=== PATIENT | female | born 1940 | race Caucasian/White ===

== ENCOUNTER 2017-07-12 11:24 | Outpatient (CLI) | payer MEDICARE, BC | END 2017-07-12 11:25 | disposition home or self-care (01) | LOC: BICMAMMO 11:24 | PROVIDERS: ATTEND Obstetrics & Gynecology | DX: Z12.31 Encounter for screening mammogram for malignant neoplasm of breast (principal); R92.1 Mammographic calcification found on diagnostic imaging of breast; Z80.3 Family history of malignant neoplasm of breast | CPT/HCPCS: 77063; 77067 ==

== ENCOUNTER 2017-11-29 11:14 | Outpatient (CLI) | payer MEDICARE, BC | END 2017-11-29 11:15 | disposition home or self-care (01) | LOC: BICMAMMO 11:14 | PROVIDERS: ATTEND Internal Medicine Rheumatology | DX: M81.0 Age-related osteoporosis without current pathological fracture (principal); M85.89 Other specified disorders of bone density and structure, multiple sites | CPT/HCPCS: 77080 ==

== ENCOUNTER 2018-07-13 10:37 | Outpatient (CLI) | payer MEDICARE, BC | END 2018-07-13 10:38 | disposition home or self-care (01) | LOC: BICMAMMO 10:37 | PROVIDERS: ATTEND Obstetrics & Gynecology | DX: Z12.31 Encounter for screening mammogram for malignant neoplasm of breast (principal); Z80.3 Family history of malignant neoplasm of breast | CPT/HCPCS: 77063; 77067 ==

== ENCOUNTER 2019-08-30 11:12 | Outpatient (CLI) | payer MEDICARE, BC ==
--- NOTE | 2019-08-30 12:33 | MMO ---
Bilateral MAMMO Bilat Screen [facility]. CLINICAL HISTORY: Patient is 79 years old and is seen for screening. The patient has no family history of breast cancer. The patient has no personal history of cancer. VIEWS: The views performed were: bilateral craniocaudal with tomosynthesis and bilateral mediolateral oblique with tomosynthesis. FILMS COMPARED: The present examination has been compared to prior imaging studies performed at [facility] on 04/24/2015, 04/28/2016, 07/12/2017 and 07/13/2018. This study has been interpreted with the assistance of computer-aided detection. MAMMOGRAM FINDINGS: The breasts are heterogeneously dense, which could obscure a lesion on mammography. There are no suspicious masses, suspicious calcifications, or new areas of architectural distortion. IMPRESSION: THERE IS NO MAMMOGRAPHIC EVIDENCE OF MALIGNANCY. A ROUTINE FOLLOW-UP MAMMOGRAM IN 1 YEAR IS RECOMMENDED. THE RESULTS OF THIS EXAM WERE SENT TO THE PATIENT. ACR BI-RADS Category 1 - Negative MAMMOGRAPHY NOTE: 1. A negative mammogram report should not delay a biopsy if a dominant of clinically suspicious mass is present. 2. Approximately 10% to 15% of breast cancers are not detected by mammography. 3. Adenosis and dense breasts may obscure an underlying neoplasm. Reported by: CARMEN HAWKINS MD Electonically Signed: [id number]
== END 2019-08-30 11:13 | disposition home or self-care (01) ==
LOC: BICMAMMO 11:12
PROVIDERS: ATTEND Obstetrics & Gynecology
DX: Z12.31 Encounter for screening mammogram for malignant neoplasm of breast (principal)
CPT/HCPCS: 77063; 77067

== ENCOUNTER 2019-12-05 10:31 | Outpatient (CLI) | payer MEDICARE, BC ==
--- NOTE | 2019-12-05 10:58 | BD ---
EXAM: DEXA bone density examination HISTORY: 79-year-old postmenopausal female for screening COMPARISON: None FINDINGS: L1--bone mineral density 0.805 g/sq cm; T score -1.7 L2--bone mineral density 0.942 g/sq cm; T score -0.8 L3--bone mineral density 0.936 g/sq cm; T score -1.3 L4--bone mineral density 1.066 g/sq cm; T score 0.0 Total L1-L4--bone mineral density 0.945 g/sq cm; T score -0.9 Left femoral neck--bone mineral density0.732; T score -1.1 Total proximal left femur--bone mineral density 0.721; T score -1.8 IMPRESSION: Osteopenia.
== END 2019-12-05 10:32 | disposition home or self-care (01) ==
LOC: BICMAMMO 10:31
PROVIDERS: ATTEND Internal Medicine Rheumatology
DX: M81.0 Age-related osteoporosis without current pathological fracture (principal); M85.89 Other specified disorders of bone density and structure, multiple sites
CPT/HCPCS: 77080

== ENCOUNTER 2020-10-08 11:19 | Outpatient (CLI) | payer MEDICARE, BC | END 2020-10-08 11:20 | disposition home or self-care (01) | LOC: BICMAMMO 11:19 | PROVIDERS: ATTEND Obstetrics & Gynecology | DX: Z12.31 Encounter for screening mammogram for malignant neoplasm of breast (principal); Z80.3 Family history of malignant neoplasm of breast | CPT/HCPCS: 77063; 77067 ==

== ENCOUNTER → 2021-02-03 | Outpatient (CLI) | payer MEDICARE, BC | LOC: CTENTCT 14:07 | PROVIDERS: ATTEND Otolaryngology Plastic Surgery within the Head & Neck | DX: J32.8 Other chronic sinusitis (principal) | CPT/HCPCS: 70486 ==

== ENCOUNTER 2021-12-24 15:08 | Outpatient (CLI) | payer MEDICARE, BC | END 2021-12-24 15:09 | disposition home or self-care (01) | LOC: BICMAMMO 15:08 | PROVIDERS: ATTEND Obstetrics & Gynecology | DX: Z12.31 Encounter for screening mammogram for malignant neoplasm of breast (principal); Z80.3 Family history of malignant neoplasm of breast | CPT/HCPCS: 77063; 77067 ==